=== PATIENT | male | born 1975 | race African-American/Black ===

== ENCOUNTER 2016-12-31 19:58 | Emergency (ER) | payer OTHER ==
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
[~2016-12-31 19:58] MED LIST: BP PILL; LISINOPRIL; PERCOCET5/325 PO
[2016-12-31] MEDS ORDERED: NO MEDICATIONS (20:17)
== END 2016-12-31 22:05 | disposition home or self-care (01) ==
LOC: SED 19:58
DX: S16.1XXA Strain of muscle, fascia and tendon at neck level, initial encounter (principal); S40.012A Contusion of left shoulder, initial encounter; S40.011A Contusion of right shoulder, initial encounter; S80.02XA Contusion of left knee, initial encounter; I10 Essential (primary) hypertension; F17.210 Nicotine dependence, cigarettes, uncomplicated; V49.40XA Driver injured in collision with unspecified motor vehicles in traffic accident, initial encounter; Y92.9 Unspecified place or not applicable
CPT/HCPCS: 70450; 71020; 72125; 72170; 73560; 99284